=== PATIENT | male | born 1935 | race African-American/Black ===

== ENCOUNTER 2016-10-11 10:56 | Inpatient (IN) | payer OTHER ==
[~2016-10-11] VITALS: Ht 170.2 cm; Wt 74.8 kg
[~2016-10-11 10:56] MED LIST: ACAR50TA PO; AMLO10TA80 PO; ASPI-986 PO; ATOR-2 PO; GLIP10TA10 PO; HYDR-4134 PO; HYDR100T26 PO; HYDR25TA PO; LOSA50TA20 PO; METF10002 PO; OMEP20TA80 PO
[2016-10-11] MEDS ORDERED: NITROGLYCERIN OINT 1GM/INCH UDPKT TD STA (11:15)
[2016-10-11] MEDS ORDERED: ASPIRIN 81MG TABLET PO STA (11:15)
[2016-10-11] MEDS ORDERED: ONDANSETRON HCL 4MG/2ML VIAL IV STA (11:15)
[2016-10-11] MEDS ORDERED: MORPHINE SULFATE 4 MG/ML CPJ (NOT FOR IM USE) IV STA (11:15)
[2016-10-11] MEDS ORDERED: MORPHINE SULFATE 4 MG/ML CPJ (NOT FOR IM USE) IV ONE (11:30)
[2016-10-11 11:43] LABS: BASOPHILS % 1.1 % (0.0-2.0); HEMATOCRIT. 31.3 % (42.0-52.0); HEMOGLOBIN. 10.3 g/dL (14.0-18.0); LYMPHOCYTES % 17.9 % (20.0-50.0); MEAN CORPUSCULAR VOLUME 82.4 fL (80.0-94.0); MEAN PLATELET VOLUME 8.8 fl (7.4-10.4); MONOCYTES % 9.4 % (2.0-8.0); NEUTROPHILS % 70.6 % (40.0-76.0); PLATELET 340 x1000/uL (130-400); RED CELL DISTRIBUTION WIDTH 18.3 % (11.6-14.6)
[2016-10-11 11:51] LABS: CHLORIDE 103 mEq/L (98-107)
[2016-10-11 11:52] LABS: PARTIAL THROMBOPLASTIN TIME 23.6 sec (24.0-34.0); PROTHROMBIN TIME 10.3 sec
[2016-10-11 11:54] LABS: CARBON DIOXIDE 27 mEq/L (21-32)
[2016-10-11 12:00] LABS: TROPONIN I 0.05 ng/mL (0.00-0.04)
[2016-10-11] MEDS ORDERED: MAGNESIUM/ALUMINUM HYDROXIDE/SIMETHICONE 30ML UDC PO PRN (13:00)
[2016-10-11] MEDS ORDERED: HYDROMORPHONE HCL/PF 2MG/ML CPJ IV PRN (13:00)
[2016-10-11] MEDS ORDERED: IPRATROPIUM/ALBUTEROL 0.5-3(2.5)MG/3ML NEB INH PRN (13:00)
[2016-10-11] MEDS ORDERED: DIPHENHYDRAMINE 50MG/ML VIAL IV PRN (13:00)
[2016-10-11] MEDS ORDERED: CLONIDINE 0.1MG TABLET PO PRN (13:00)
[2016-10-11] MEDS ORDERED: ACETAMINOPHEN 325MG TABLET PO PRN (13:00)
[2016-10-11] MEDS ORDERED: ONDANSETRON HCL 4MG/2ML VIAL IV PRN (13:00)
[2016-10-11] MEDS ORDERED: DOCUSATE SODIUM 100MG CAPSULE PO PRN (13:00)
[2016-10-11] MEDS ORDERED: LORAZEPAM 2MG/ML CPJ IV PRN (13:00)
[2016-10-11] MEDS ORDERED: HYDROCODONE/ACETAMINOPHEN 10/325MG TABLET PO PRN (13:00)
[2016-10-11] MEDS ORDERED: GUAIFENESIN 200MG/10ML SUGAR FREE UDC PO PRN (13:00)
[2016-10-11] MEDS ORDERED: NA PHOS,M-B/NA PHOS,DI-BA ENEMA 118ML PR PRN (13:00)
[2016-10-11 15:34] VITALS: BP 148/74
[2016-10-11 16:00] VITALS: BP 148/74
[2016-10-11 16:52] LABS: CARBON DIOXIDE 28 mEq/L (21-32); CHLORIDE 103 mEq/L (98-107)
[2016-10-11] MEDS: ENOXAPARIN 40MG/0.4ML SYR SUBCUT SCH (17:54)
[2016-10-11 20:00] VITALS: BP 125/67
[2016-10-11] MEDS ORDERED: AMLODIPINE 10MG TABLET PO SCH (21:00)
[2016-10-11] MEDS ORDERED: DEXTROSE 50% WATER 50ML SYRINGE IV PRN (21:00)
[2016-10-11] MEDS: OMEPRAZOLE 20MG CAPSULE EXTENDED RELEASE PO SCH (21:03)
[2016-10-11] MEDS: HYDRALAZINE HCL 100MG TABLET PO SCH (21:03)
[2016-10-11] MEDS: BLOOD SUGAR DIAGNOSTIC STRIP TEST SCH (21:04)
[2016-10-11] MEDS: INSULIN LISPRO 100 UNITS/ML SUBCUT SCH (21:05)
[2016-10-12] VITALS: BP 115/64
[2016-10-12 04:00] VITALS: BP 133/77
[2016-10-12 06:14] LABS: BASOPHILS % 0.3 % (0.0-2.0); EOSINOPHILS % 3.4 % (0.0-5.0); HEMATOCRIT. 28.1 % (42.0-52.0); HEMOGLOBIN. 9.3 g/dL (14.0-18.0); LYMPHOCYTES % 21.3 % (20.0-50.0); MEAN CORPUSCULAR HEMOGLOBIN 27.3 pg (28.0-32.0); MEAN CORPUSCULAR VOLUME 82.7 fL (80.0-94.0); MEAN PLATELET VOLUME 9.5 fl (7.4-10.4); MONOCYTES % 10.4 % (2.0-8.0); NEUTROPHILS % 64.6 % (40.0-76.0); PLATELET 313 x1000/uL (130-400); RED CELL DISTRIBUTION WIDTH 18.5 % (11.6-14.6)
[2016-10-12] MEDS: HYDRALAZINE HCL 100MG TABLET PO SCH (06:19)
[2016-10-12] MEDS: OMEPRAZOLE 20MG CAPSULE EXTENDED RELEASE PO SCH (06:22)
[2016-10-12] MEDS: BLOOD SUGAR DIAGNOSTIC STRIP TEST SCH ×3 (06:27→18:16)
[2016-10-12] MEDS ORDERED: ACARBOSE 50 MG TABLET PO SCH (07:20)
[2016-10-12] MEDS: GLIPIZIDE 10MG TABLET PO SCH ×2 (07:59→18:25)
[2016-10-12 08:00] VITALS: BP 115/67
[2016-10-12] MEDS: METFORMIN HCL 500MG TABLET PO SCH ×2 (08:00→18:26)
[2016-10-12] MEDS: INSULIN LISPRO 100 UNITS/ML SUBCUT SCH ×3 (08:05→17:50)
[2016-10-12 08:14] LABS: CARBON DIOXIDE 29 mEq/L (21-32); CHLORIDE 104 mEq/L (98-107); LDL CHOLESTEROL 51 mg/dL (5-100)
[2016-10-12 08:15] LABS: HDL CHOLESTEROL 35 mg/dL (40-59)
[2016-10-12] MEDS ORDERED: ASPIRIN 81MG EC TABLET PO SCH (09:00)
[2016-10-12] MEDS ORDERED: ASPIRIN 325MG TABLET PO SCH (09:00)
[2016-10-12] MEDS ORDERED: LOSARTAN POTASSIUM 50 MG TABLET PO SCH (09:00)
[2016-10-12] MEDS ORDERED: HYDROCHLOROTHIAZIDE 25MG TABLET PO SCH (09:00)
[2016-10-12 12:00] VITALS: BP 130/73
[2016-10-12] MEDS ORDERED: HYDRALAZINE HCL 50MG TABLET PO SCH (12:00)
[2016-10-12 15:41] LABS: TROPONIN I 0.05 ng/mL (0.00-0.04)
[2016-10-12 15:45] LABS: T4 FREE 0.97 ng/dL (0.76-1.46)
[2016-10-12 16:00] VITALS: BP 135/75
[2016-10-12] MEDS: ENOXAPARIN 40MG/0.4ML SYR SUBCUT SCH (16:15)
[2016-10-12 20:00] VITALS: BP 148/79
[2016-10-12] MEDS ORDERED: ATORVASTATIN CALCIUM 40MG TABLET PO SCH (21:00)
[2016-10-13] MEDS ORDERED: FAMOTIDINE 20MG TABLET PO SCH (09:00)
[2016-10-13] MEDS ORDERED: ASPIRIN 81MG TABLET PO SCH (09:00)
== END 2016-10-12 21:25 | disposition short-term general hospital (02) | DRG 179 ==
LOC: ER 11:03 → 6WST 12:46
PROVIDERS: ADMIT Internal Medicine; ATTEND Internal Medicine
DX: J98.51 Mediastinitis (principal); D64.9 Anemia, unspecified; E11.9 Type 2 diabetes mellitus without complications; E78.5 Hyperlipidemia, unspecified; G89.4 Chronic pain syndrome; I25.10 Atherosclerotic heart disease of native coronary artery without angina pectoris; K21.9 Gastro-esophageal reflux disease without esophagitis; I11.9 Hypertensive heart disease without heart failure; Z88.8 Allergy status to other drugs, medicaments and biological substances; Z79.899 Other long term (current) drug therapy
CPT/HCPCS: 36415; 71010; 80048; 80053; 80061; 82550; 82553; 82962; 83036; 83690; 83880; 84439; 84443; 84484; 85025; 85379; 85610; 85730; 93005; 96374; 96375; 99291; C1893; J1650; J1815; J2270; J2405

== ENCOUNTER 2020-11-01 10:35 | Emergency (ER) | payer OTHER ==
[~2020-11-01] VITALS: Ht 172.7 cm; Wt 77.0 kg
[~2020-11-01 10:35] MED LIST changes: -ACAR50TA PO; +ACAR50TA5 PO; -LOSA50TA20 PO; +LOSA50TA41 PO; +METF-416 PO; -METF10002 PO; +OMEP20TA2 PO; -OMEP20TA80 PO
[2020-11-01] MEDS ORDERED: SODIUM CHLORIDE 0.9% 500 ML IV ONE (11:00)
[2020-11-01 11:20] LABS: BASOPHILS % 1.2 % (0.0-2.0); EOSINOPHILS % 2.6 % (0.0-5.0); HEMOGLOBIN. 10.4 g/dL (14.0-18.0); MEAN CORPUSCULAR HEMOGLOBIN 29.2 pg (28.0-32.0); MEAN CORPUSCULAR VOLUME 87.4 fL (80.0-94.0); MEAN PLATELET VOLUME 9.9 fl (7.4-10.4); MONOCYTES % 8.8 % (2.0-8.0); NEUTROPHILS % 68.4 % (40.0-76.0); PLATELET 227 x1000/uL (130-400); RED BLOOD CELL COUNT 3.55 mill/uL (4.7-6.1); RED CELL DISTRIBUTION WIDTH 16.7 % (11.6-14.6)
[2020-11-01 11:27] LABS: CHLORIDE 107 mEq/L (98-107)
[2020-11-01 13:15] LABS: CLARITY URINE CLEAR (CLEAR); COLOR URINE YELLOW (YELLOW); KETONES URINE NEGATIVE (NEGATIVE); LEUKOCYTE ESTERASE URINE NEGATIVE (NEGATIVE); NITRITE URINE NEGATIVE (NEGATIVE); OCCULT BLOOD URINE NEGATIVE (NEGATIVE); PROTEIN URINE 1+ (NEGATIVE); SPECIFIC GRAVITY URINE 1.007 (1.005-1.030); UROBILINOGEN URINE 0.2 E.U./dL (0.2-1.0)
[2020-11-01 15:05] VITALS: BP 161/56
== END 2020-11-01 15:06 | disposition short-term general hospital (02) ==
LOC: ER 10:35
DX: R00.1 Bradycardia, unspecified (principal); I10 Essential (primary) hypertension; E11.9 Type 2 diabetes mellitus without complications; Z88.8 Allergy status to other drugs, medicaments and biological substances; Z79.899 Other long term (current) drug therapy
CPT/HCPCS: 36415; 71045; 80053; 81003; 84484; 85025; 93005; 96360; 96361; 99285; J7040

== ENCOUNTER 2020-11-03 15:30 | Emergency (ER) | payer OTHER ==
[~2020-11-03] VITALS: Ht 175.3 cm; Wt 79.0 kg
[2020-11-03 16:13] LABS: BASOPHILS % 1.3 % (0.0-2.0); EOSINOPHILS % 2.9 % (0.0-5.0); HEMATOCRIT. 31.1 % (42.0-52.0); HEMOGLOBIN. 10.7 g/dL (14.0-18.0); MEAN CORPUSCULAR HEMOGLOBIN 29.9 pg (28.0-32.0); MEAN PLATELET VOLUME 9.9 fl (7.4-10.4); NEUTROPHILS % 66.8 % (40.0-76.0); PLATELET 216 x1000/uL (130-400); RED BLOOD CELL COUNT 3.58 mill/uL (4.7-6.1); RED CELL DISTRIBUTION WIDTH 16.9 % (11.6-14.6)
[2020-11-03 16:19] LABS: CHLORIDE 108 mEq/L (98-107)
[2020-11-03] MEDS ORDERED: ASPIRIN 81MG TABLET PO ONE (16:45)
[2020-11-03] MEDS ORDERED: NITROGLYCERIN 0.4MG TABLET SL SL PRN (16:45)
[2020-11-03 18:43] VITALS: BP 172/62
== END 2020-11-03 19:15 | disposition short-term general hospital (02) ==
LOC: ER 15:41 → CANBEDREQ 19:30
DX: R07.89 Other chest pain (principal); I20.0 Unstable angina; I11.9 Hypertensive heart disease without heart failure; E11.9 Type 2 diabetes mellitus without complications; Z88.8 Allergy status to other drugs, medicaments and biological substances; Z88.6 Allergy status to analgesic agent; Z79.899 Other long term (current) drug therapy
CPT/HCPCS: 36415; 71045; 80053; 83880; 84484; 85025; 93005; 99285

== ENCOUNTER 2021-08-26 10:52 | Emergency (ER) | payer OTHER ==
[~2021-08-26] VITALS: Ht 175.3 cm; Wt 97.0 kg
[2021-08-26] MEDS ORDERED: ONDANSETRON HCL 4MG/2ML INJ IV STA (11:09)
[2021-08-26] MEDS ORDERED: MORPHINE SULFATE 4 MG/ML CPJ (NOT FOR IM USE) IV STA (11:09)
[2021-08-26 11:40] LABS: BASOPHILS % 1.1 % (0.0-2.0); EOSINOPHILS % 0.9 % (0.0-5.0); HEMOGLOBIN. 11.2 g/dL (14.0-18.0); LYMPHOCYTES % 16.9 % (20.0-50.0); MEAN CORPUSCULAR HEMOGLOBIN 27.5 pg (28.0-32.0); MEAN CORPUSCULAR VOLUME 83.7 fL (80.0-94.0); MEAN PLATELET VOLUME 9.4 fl (7.4-10.4); MONOCYTES % 7.4 % (2.0-8.0); NEUTROPHILS % 73.7 % (40.0-76.0); PLATELET 241 x1000/uL (130-400); RED BLOOD CELL COUNT 4.07 mill/uL (4.7-6.1); RED CELL DISTRIBUTION WIDTH 18.4 % (11.6-14.6)
[2021-08-26 11:47] LABS: CHLORIDE 104 mEq/L (98-107)
[2021-08-26] MEDS ORDERED: MORPHINE SULFATE 4 MG/ML CPJ (NOT FOR IM USE) IV ONE (17:15)
[2021-08-26 17:47] VITALS: BP 153/60
== END 2021-08-26 17:58 | disposition short-term general hospital (02) ==
LOC: ER 10:52
DX: I20.0 Unstable angina (principal); I10 Essential (primary) hypertension; E78.00 Pure hypercholesterolemia, unspecified; Z88.8 Allergy status to other drugs, medicaments and biological substances; Z79.899 Other long term (current) drug therapy
CPT/HCPCS: 36415; 71045; 80053; 82962; 83880; 84484; 85025; 87426; 93005; 96374; 96375; 96376; 99285; J2270; J2405

== ENCOUNTER 2021-08-28 08:16 | Emergency (ER) | payer OTHER ==
[~2021-08-28] VITALS: Ht 175.3 cm; Wt 63.5 kg
[2021-08-28 08:18] VITALS: BP 183/65
[2021-08-28] MEDS ORDERED: CLONIDINE 0.1MG TABLET PO ONE (08:30)
[2021-08-28 08:53] LABS: BASOPHILS % 0.8 % (0.0-2.0); EOSINOPHILS % 3.1 % (0.0-5.0); HEMATOCRIT. 32.4 % (42.0-52.0); HEMOGLOBIN. 10.6 g/dL (14.0-18.0); LYMPHOCYTES % 22.2 % (20.0-50.0); MEAN CORPUSCULAR HEMOGLOBIN 28.2 pg (28.0-32.0); MEAN CORPUSCULAR VOLUME 86.2 fL (80.0-94.0); MEAN PLATELET VOLUME 8.9 fl (7.4-10.4); MONOCYTES % 7.5 % (2.0-8.0); NEUTROPHILS % 66.4 % (40.0-76.0); PLATELET 239 x1000/uL (130-400); RED BLOOD CELL COUNT 3.76 mill/uL (4.7-6.1); RED CELL DISTRIBUTION WIDTH 18.2 % (11.6-14.6)
[2021-08-28 09:02] LABS: CHLORIDE 109 mEq/L (98-107)
== END 2021-08-28 10:58 | disposition home or self-care (01) ==
LOC: ER 08:16
DX: I10 Essential (primary) hypertension (principal); E78.00 Pure hypercholesterolemia, unspecified; N41.9 Inflammatory disease of prostate, unspecified; Z88.8 Allergy status to other drugs, medicaments and biological substances; Z79.82 Long term (current) use of aspirin; Z86.718 Personal history of other venous thrombosis and embolism
CPT/HCPCS: 36415; 80053; 85025; 93005; 99284

== ENCOUNTER 2022-07-21 15:27 | Emergency (ER) | payer OTHER ==
[~2022-07-21] VITALS: Ht 162.6 cm; Wt 107.0 kg
[~2022-07-21 15:27] MED LIST changes: -OMEP20TA2 PO; +OMEP20TA23 PO
[2022-07-21 16:41] LABS: BASOPHILS % 1.2 % (0.0-2.0); EOSINOPHILS % 2.6 % (0.0-5.0); HEMOGLOBIN. 10.6 g/dL (14.0-18.0); LYMPHOCYTES % 25.8 % (20.0-50.0); MEAN CORPUSCULAR HEMOGLOBIN 28.7 pg (28.0-32.0); MONOCYTES % 10.4 % (2.0-8.0); PLATELET 252 x1000/uL (130-400); RED BLOOD CELL COUNT 3.68 mill/uL (4.7-6.1); RED CELL DISTRIBUTION WIDTH 16.8 % (11.6-14.6)
[2022-07-21 16:47] LABS: CHLORIDE 99 mEq/L (98-107)
[2022-07-21] MEDS ORDERED: KETOROLAC 15MG/ML VIAL IV ONE (18:00)
[2022-07-21] MEDS ORDERED: METHYLPREDNISOLONE SOD SUCC 40 MG/ML VIAL IV ONE (18:00)
[2022-07-21] MEDS ORDERED: SODIUM CHLORIDE 0.9% 500 ML IV ONE (18:00)
[2022-07-21] MEDS ORDERED: P20 MT (18:06)
[2022-07-21] MEDS ORDERED: TOPUD PO (18:07)
[2022-07-21 19:45] VITALS: BP 122/83
== END 2022-07-21 20:51 | disposition home or self-care (01) ==
LOC: ER 15:27
DX: E78.00 Pure hypercholesterolemia, unspecified (principal); E11.9 Type 2 diabetes mellitus without complications; I10 Essential (primary) hypertension; R42 Dizziness and giddiness; Z79.899 Other long term (current) drug therapy
CPT/HCPCS: 36415; 71045; 80053; 83605; 83880; 84484; 85025; 93005; 96365; 96375; 99285; J1885; J2920; J7040

== ENCOUNTER 2022-08-05 03:16 | Emergency (ER) | payer OTHER ==
[~2022-08-05] VITALS: Ht 172.7 cm; Wt 83.0 kg
[~2022-08-05 03:16] MED LIST changes: +P20 MT; +TOPUD PO
[2022-08-05] MEDS: IBUPROFEN 400MG TABLET PO ONE ×2 (06:15→07:04)
[2022-08-05] MEDS ORDERED: METOCLOPRAMIDE HCL 10MG TABLET PO ONE (06:15)
[2022-08-05 08:05] LABS: CHLORIDE 99 mEq/L (98-107)
[2022-08-05 08:11] LABS: BASOPHILS % 1.1 % (0.0-2.0); EOSINOPHILS % 1.7 % (0.0-5.0); HEMATOCRIT. 34.3 % (42.0-52.0); HEMOGLOBIN. 11.4 g/dL (14.0-18.0); LYMPHOCYTES % 25.6 % (20.0-50.0); MEAN CORPUSCULAR HEMOGLOBIN 29.1 pg (28.0-32.0); MEAN CORPUSCULAR VOLUME 87.7 fL (80.0-94.0); MEAN PLATELET VOLUME 10.8 fl (7.4-10.4); MONOCYTES % 7.7 % (2.0-8.0); NEUTROPHILS % 63.9 % (40.0-76.0); PLATELET 231 x1000/uL (130-400); RED BLOOD CELL COUNT 3.91 mill/uL (4.7-6.1); RED CELL DISTRIBUTION WIDTH 17.3 % (11.6-14.6)
[2022-08-05] MEDS ORDERED: HYDRALAZINE 20MG/ML VIAL IV ONE (08:30)
[2022-08-05] MEDS ORDERED: IOHEXOL-350 100 ML BOTTLE ONE (09:34)
[2022-08-05] MEDS ORDERED: ASPIRIN 325MG EC TABLET PO ONE (10:30)
[2022-08-05] MEDS ORDERED: FUROSEMIDE 20MG/2ML VIAL IVP ONE (10:30)
[2022-08-05] MEDS ORDERED: AMLODIPINE 10MG TABLET PO ONE (11:30)
[2022-08-05 12:38] VITALS: BP 204/83
== END 2022-08-05 12:40 | disposition short-term general hospital (02) ==
LOC: ER 03:16
DX: R07.9 Chest pain, unspecified (principal); I11.0 Hypertensive heart disease with heart failure; I50.9 Heart failure, unspecified; E11.9 Type 2 diabetes mellitus without complications; D64.9 Anemia, unspecified; E78.00 Pure hypercholesterolemia, unspecified; N40.0 Benign prostatic hyperplasia without lower urinary tract symptoms; Z88.6 Allergy status to analgesic agent; Z88.8 Allergy status to other drugs, medicaments and biological substances; Z79.82 Long term (current) use of aspirin; Z86.718 Personal history of other venous thrombosis and embolism; Z20.822 Contact with and (suspected) exposure to COVID-19
CPT/HCPCS: 36415; 70496; 71045; 80053; 83880; 84484; 85025; 87426; 93005; 96374; 96375; 99291; C9803; J0360; J1940; J8597; Q9967

== ENCOUNTER 2022-08-31 05:12 | Emergency (ER) | payer OTHER ==
[~2022-08-31] VITALS: Ht 172.7 cm; Wt 82.0 kg
[2022-08-31 05:17] VITALS: BP 190/65
[2022-08-31 05:58] LABS: BASOPHILS % 1.1 % (0.0-2.0); EOSINOPHILS % 2.4 % (0.0-5.0); HEMATOCRIT. 32.2 % (42.0-52.0); HEMOGLOBIN. 10.5 g/dL (14.0-18.0); LYMPHOCYTES % 21.5 % (20.0-50.0); MEAN CORPUSCULAR HEMOGLOBIN 28.9 pg (28.0-32.0); MEAN CORPUSCULAR VOLUME 88.9 fL (80.0-94.0); MEAN PLATELET VOLUME 9.9 fl (7.4-10.4); MONOCYTES % 7.6 % (2.0-8.0); NEUTROPHILS % 67.4 % (40.0-76.0); PLATELET 252 x1000/uL (130-400); RED BLOOD CELL COUNT 3.62 mill/uL (4.7-6.1); RED CELL DISTRIBUTION WIDTH 17.5 % (11.6-14.6)
[2022-08-31 06:02] LABS: CHLORIDE 106 mEq/L (98-107)
[2022-08-31] MEDS ORDERED: HYDRALAZINE HCL 50MG TABLET PO ONE (07:00)
[2022-08-31] MEDS ORDERED: HYDRALAZINE HCL 25MG TABLET PO NR (07:30)
== END 2022-08-31 09:16 | disposition home or self-care (01) ==
LOC: ER 05:12
DX: I10 Essential (primary) hypertension (principal); E11.9 Type 2 diabetes mellitus without complications; E78.00 Pure hypercholesterolemia, unspecified; Z79.84 Long term (current) use of oral hypoglycemic drugs; Z88.6 Allergy status to analgesic agent; Z88.8 Allergy status to other drugs, medicaments and biological substances
CPT/HCPCS: 36415; 80053; 85025; 93005; 99284

== ENCOUNTER 2022-09-28 04:33 | Emergency (ER) | payer OTHER ==
[~2022-09-28] VITALS: Ht 182.9 cm; Wt 77.0 kg
[2022-09-28] MEDS ORDERED: HYDRALAZINE 20MG/ML VIAL IV ONE (05:15)
[2022-09-28] MEDS ORDERED: ACETAMINOPHEN 325MG TABLET PO ONE (06:00)
[2022-09-28 06:15] VITALS: BP 175/62
[2022-09-28 08:14] LABS: BASOPHILS % 0.9 % (0.0-2.0); EOSINOPHILS % 2.5 % (0.0-5.0); HEMATOCRIT. 32.1 % (42.0-52.0); HEMOGLOBIN. 10.4 g/dL (14.0-18.0); LYMPHOCYTES % 17.4 % (20.0-50.0); MEAN CORPUSCULAR HEMOGLOBIN 28.8 pg (28.0-32.0); MEAN CORPUSCULAR VOLUME 89.1 fL (80.0-94.0); MEAN PLATELET VOLUME 9.9 fl (7.4-10.4); MONOCYTES % 8.4 % (2.0-8.0); NEUTROPHILS % 70.8 % (40.0-76.0); PLATELET 252 x1000/uL (130-400); RED CELL DISTRIBUTION WIDTH 17.1 % (11.6-14.6)
[2022-09-28 08:25] LABS: CHLORIDE 107 mEq/L (98-107); PROTHROMBIN TIME 10.7 sec (9.6-11.0)
== END 2022-09-28 11:20 | disposition home or self-care (01) ==
LOC: ER 04:33
DX: R51.9 Headache, unspecified (principal); I10 Essential (primary) hypertension; D64.9 Anemia, unspecified; E11.9 Type 2 diabetes mellitus without complications; E78.00 Pure hypercholesterolemia, unspecified; Z79.899 Other long term (current) drug therapy
CPT/HCPCS: 36415; 80053; 84484; 85025; 85610; 93005; 96374; 99284; J0360

== ENCOUNTER 2022-10-18 01:33 | Emergency (ER) | payer OTHER ==
[~2022-10-18] VITALS: Ht 167.6 cm; Wt 73.0 kg
[2022-10-18 09:28] LABS: BASOPHILS % 1.1 % (0.0-2.0); EOSINOPHILS % 4.4 % (0.0-5.0); HEMATOCRIT. 34.9 % (42.0-52.0); HEMOGLOBIN. 11.4 g/dL (14.0-18.0); LYMPHOCYTES % 22.4 % (20.0-50.0); MEAN CORPUSCULAR HEMOGLOBIN 28.8 pg (28.0-32.0); MEAN PLATELET VOLUME 10.1 fl (7.4-10.4); MONOCYTES % 8.4 % (2.0-8.0); NEUTROPHILS % 63.7 % (40.0-76.0); PLATELET 296 x1000/uL (130-400); RED BLOOD CELL COUNT 3.97 mill/uL (4.7-6.1)
[2022-10-18 09:40] LABS: CHLORIDE 107 mEq/L (98-107)
[2022-10-18 10:38] VITALS: BP 156/90
== END 2022-10-18 10:39 | disposition home or self-care (01) ==
LOC: ER 01:33
DX: I10 Essential (primary) hypertension (principal); E78.00 Pure hypercholesterolemia, unspecified; E11.9 Type 2 diabetes mellitus without complications; Z88.6 Allergy status to analgesic agent; Z88.8 Allergy status to other drugs, medicaments and biological substances; Z79.899 Other long term (current) drug therapy
CPT/HCPCS: 36415; 71045; 80053; 84484; 85025; 93005; 99285; C1893

== ENCOUNTER 2022-12-24 03:14 | Emergency (ER) | payer OTHER ==
[~2022-12-24] VITALS: Ht 167.6 cm; Wt 60.0 kg
[2022-12-24 03:17] VITALS: O2SAT 99
[2022-12-24] MEDS ORDERED: AMLODIPINE 10MG TABLET PO ONE (03:45)
[2022-12-24] MEDS ORDERED: HYDRALAZINE HCL 100MG TABLET PO ONE (03:45)
[2022-12-24 04:21] LABS: EOSINOPHILS % 4.7 % (0.0-5.0); HEMATOCRIT. 35.7 % (42.0-52.0); HEMOGLOBIN. 11.6 g/dL (14.0-18.0); LYMPHOCYTES % 18.6 % (20.0-50.0); MEAN CORPUSCULAR HEMOGLOBIN 28.2 pg (28.0-32.0); MEAN CORPUSCULAR HGB CONC 32.4 g/dL (31.0-37.0); MEAN CORPUSCULAR VOLUME 86.8 fL (80.0-94.0); MEAN PLATELET VOLUME 9.5 fl (7.4-10.4); NEUTROPHILS % 67.7 % (40.0-76.0); PLATELET 204 x1000/uL (130-400); RED BLOOD CELL COUNT 4.12 mill/uL (4.7-6.1); RED CELL DISTRIBUTION WIDTH 17.4 % (11.6-14.6); WHITE BLOOD COUNT 6.6 x1000/uL (4.5-11.0)
[2022-12-24 04:36] LABS: CHLORIDE 106 mEq/L (98-107); INDEX HEMOLYSI 4 (1-3); INDEX ICTERIC 1 (1-4); INDEX LIPEMIC 1 (1-3); SODIUM 137 mEq/L (136-145)
[2022-12-24 04:45] LABS: ALANINE AMINOTRANSFERASE 28 IU/L (13-61); ALBUMIN 3.8 g/dL (3.4-5.0); ASPARTATE AMINOTRANSFERASE 27 IU/L (15-37); BILIRUBIN TOTAL 0.3 mg/dL (0.1-1.0); CALCIUM 8.3 mg/dL (8.5-10.1); CARBON DIOXIDE 24 mEq/L (21-32); CREATININE 1.7 mg/dL (0.6-1.3); GLUCOSE 208 mg/dL (70-105); NT PRO B-TYPE NATRIURETIC PEP 506 pg/mL (5-125); PROTEIN TOTAL 7.9 g/dL (6.0-8.3); TROPONIN I HIGH SENSITIVITY 32 ng/L (<78); UREA NITROGEN BLOOD 28 mg/dL (7-21)
[2022-12-24 04:51] LABS: POTASSIUM 4.2 mEq/L (3.5-5.1)
[2022-12-24] MEDS ORDERED: ASPIRIN 325MG TABLET PO ONE (05:00)
[2022-12-24 05:21] LABS: INR 0.9; PROTHROMBIN TIME 10.1 sec (9.6-11.0)
[2022-12-24 07:35] VITALS: TEMP 98.6
[2022-12-24 09:35] VITALS: BP 164/64; PULSE 48; RESP 20
[2022-12-24 09:54] LABS: TROPONIN I HIGH SENSITIVITY 41 ng/L (<78)
[2022-12-24] MEDS ORDERED: HYDRALAZINE HCL 50MG TABLET PO ONE (10:15)
== END 2022-12-24 10:40 | disposition home or self-care (01) ==
LOC: ER 03:14
DX: R07.89 Other chest pain (principal); I10 Essential (primary) hypertension; E11.9 Type 2 diabetes mellitus without complications; E78.00 Pure hypercholesterolemia, unspecified; Z88.6 Allergy status to analgesic agent; Z88.8 Allergy status to other drugs, medicaments and biological substances; Z79.899 Other long term (current) drug therapy
CPT/HCPCS: 36415; 71045; 80053; 83880; 84484; 85025; 93005; 99285

== ENCOUNTER 2023-01-18 23:54 | Emergency (ER) | payer OTHER ==
[~2023-01-18] VITALS: Ht 170.2 cm; Wt 77.0 kg
[2023-01-18 23:56] VITALS: BP 193/64; PULSE 64; RESP 15; TEMP 98.3; O2SAT 99
[2023-01-19 01:33] LABS: BASOPHILS % 0.6 % (0.0-2.0); DIFFERENTIAL COMMENT 0; EOSINOPHILS % 0.2 % (0.0-5.0); HEMATOCRIT. 29.7 % (42.0-52.0); HEMOGLOBIN. 9.7 g/dL (14.0-18.0); LYMPHOCYTES % 7.6 % (20.0-50.0); MEAN CORPUSCULAR HEMOGLOBIN 28.3 pg (28.0-32.0); MEAN CORPUSCULAR HGB CONC 32.6 g/dL (31.0-37.0); MEAN CORPUSCULAR VOLUME 86.8 fL (80.0-94.0); MEAN PLATELET VOLUME 10.2 fl (7.4-10.4); NEUTROPHILS % 85.6 % (40.0-76.0); PLATELET 237 x1000/uL (130-400); RED BLOOD CELL COUNT 3.42 mill/uL (4.7-6.1); RED CELL DISTRIBUTION WIDTH 17.6 % (11.6-14.6); WHITE BLOOD COUNT 9.4 x1000/uL (4.5-11.0)
[2023-01-19 01:41] LABS: POTASSIUM 3.9 mEq/L (3.5-5.1)
[2023-01-19 01:46] LABS: BETA HYDROXYBUTYRATE 0.3 mMol/L (0.0-0.3); CALCIUM 7.6 mg/dL (8.5-10.1); CREATININE 1.7 mg/dL (0.6-1.3)
[2023-01-19] MEDS ORDERED: SODIUM CHLORIDE 0.9% 500 ML IV ONE (02:00)
== END 2023-01-19 07:00 | disposition home or self-care (01) ==
LOC: ER 23:54
DX: E11.65 Type 2 diabetes mellitus with hyperglycemia (principal); E78.00 Pure hypercholesterolemia, unspecified; I10 Essential (primary) hypertension; Z79.899 Other long term (current) drug therapy
CPT/HCPCS: 99283; 96360; 80048; 82010; 82962; 85025; 36415; J7040

== ENCOUNTER 2023-02-04 03:44 | Emergency (ER) | payer OTHER ==
[~2023-02-04] VITALS: Ht 165.1 cm; Wt 75.0 kg
[2023-02-04 03:53] VITALS: O2SAT 96
[2023-02-04 04:47] LABS: BASOPHILS % 0.8 % (0.0-2.0); EOSINOPHILS % 4.8 % (0.0-5.0); HEMATOCRIT. 31.2 % (42.0-52.0); HEMOGLOBIN. 10.2 g/dL (14.0-18.0); LYMPHOCYTES % 27.7 % (20.0-50.0); MEAN CORPUSCULAR HEMOGLOBIN 28.4 pg (28.0-32.0); MEAN CORPUSCULAR HGB CONC 32.6 g/dL (31.0-37.0); MEAN CORPUSCULAR VOLUME 87.2 fL (80.0-94.0); MEAN PLATELET VOLUME 9.7 fl (7.4-10.4); MONOCYTES % 10.2 % (2.0-8.0); NEUTROPHILS % 56.5 % (40.0-76.0); PLATELET 252 x1000/uL (130-400); RED BLOOD CELL COUNT 3.57 mill/uL (4.7-6.1); RED CELL DISTRIBUTION WIDTH 17.5 % (11.6-14.6); WHITE BLOOD COUNT 6.4 x1000/uL (4.5-11.0)
[2023-02-04 04:57] LABS: CHLORIDE 104 mEq/L (98-107); INDEX HEMOLYSI 1 (1-3); INDEX ICTERIC 1 (1-4); INDEX LIPEMIC 1 (1-3); POTASSIUM 3.7 mEq/L (3.5-5.1); SODIUM 137 mEq/L (136-145)
[2023-02-04 05:03] LABS: ALBUMIN 3.7 g/dL (3.4-5.0); CALCIUM 8.4 mg/dL (8.5-10.1); CARBON DIOXIDE 25 mEq/L (21-32); GLUCOSE 351 mg/dL (70-105); UREA NITROGEN BLOOD 18 mg/dL (7-21)
[2023-02-04 05:08] LABS: ALANINE AMINOTRANSFERASE 16 IU/L (13-61); ASPARTATE AMINOTRANSFERASE 10 IU/L (15-37); BILIRUBIN TOTAL 0.2 mg/dL (0.1-1.0); CREATININE 1.7 mg/dL (0.6-1.3); PROTEIN TOTAL 7.3 g/dL (6.0-8.3); TROPONIN I HIGH SENSITIVITY 45 ng/L (<78)
[2023-02-04] MEDS ORDERED: HYDRALAZINE HCL 50MG TABLET PO ONE (06:30)
[2023-02-04 07:54] VITALS: BP 154/54; PULSE 76; RESP 16; TEMP 98.3
[2023-02-04 08:45] LABS: TROPONIN I HIGH SENSITIVITY 49 ng/L (<78)
== END 2023-02-04 09:23 | disposition home or self-care (01) ==
LOC: ER 03:44
DX: I10 Essential (primary) hypertension (principal); Z88.6 Allergy status to analgesic agent; Z79.899 Other long term (current) drug therapy
CPT/HCPCS: 36415; 71045; 80053; 84484; 85025; 93005; 99285

== ENCOUNTER 2023-02-04 19:09 | Emergency (ER) | payer OTHER ==
[~2023-02-04] VITALS: Ht 175.3 cm; Wt 84.0 kg
[2023-02-04 19:14] VITALS: O2SAT 96
[2023-02-04 20:29] LABS: EOSINOPHILS % 4.6 % (0.0-5.0); HEMATOCRIT. 30.7 % (42.0-52.0); HEMOGLOBIN. 9.9 g/dL (14.0-18.0); LYMPHOCYTES % 18.5 % (20.0-50.0); MEAN CORPUSCULAR HEMOGLOBIN 28.2 pg (28.0-32.0); MEAN CORPUSCULAR HGB CONC 32.3 g/dL (31.0-37.0); MEAN CORPUSCULAR VOLUME 87.3 fL (80.0-94.0); MEAN PLATELET VOLUME 9.4 fl (7.4-10.4); MONOCYTES % 10.4 % (2.0-8.0); NEUTROPHILS % 65.5 % (40.0-76.0); PLATELET 234 x1000/uL (130-400); RED BLOOD CELL COUNT 3.52 mill/uL (4.7-6.1); RED CELL DISTRIBUTION WIDTH 17.7 % (11.6-14.6); WHITE BLOOD COUNT 5.4 x1000/uL (4.5-11.0)
[2023-02-04 20:37] LABS: CHLORIDE 103 mEq/L (98-107); INDEX HEMOLYSI 1 (1-3); INDEX ICTERIC 1 (1-4); INDEX LIPEMIC 1 (1-3); POTASSIUM 3.6 mEq/L (3.5-5.1); SODIUM 134 mEq/L (136-145)
[2023-02-04 20:48] LABS: ALANINE AMINOTRANSFERASE 20 IU/L (13-61); ALBUMIN 3.7 g/dL (3.4-5.0); ASPARTATE AMINOTRANSFERASE 10 IU/L (15-37); BILIRUBIN TOTAL 0.3 mg/dL (0.1-1.0); CALCIUM 8.5 mg/dL (8.5-10.1); CARBON DIOXIDE 24 mEq/L (21-32); CREATININE 1.8 mg/dL (0.6-1.3); ETHANOL BLOOD < 10 mg/dL (-10); GLUCOSE 219 mg/dL (70-105); NT PRO B-TYPE NATRIURETIC PEP 256 pg/mL (5-125); PROTEIN TOTAL 7.2 g/dL (6.0-8.3); TROPONIN I HIGH SENSITIVITY 54 ng/L (<78); UREA NITROGEN BLOOD 17 mg/dL (7-21)
[2023-02-04] MEDS ORDERED: ASPIRIN 81MG TABLET PO ONE (22:15)
[2023-02-05 00:28] VITALS: BP 189/78; PULSE 72; RESP 17; TEMP 98.4
== END 2023-02-05 01:35 | disposition short-term general hospital (02) ==
LOC: ER 19:09
DX: R07.89 Other chest pain (principal); I20.0 Unstable angina; I10 Essential (primary) hypertension
CPT/HCPCS: 36415; 71045; 80053; 80320; 83880; 84484; 85025; 99284; G0480

== ENCOUNTER 2023-03-21 09:56 | Emergency (ER) | payer OTHER ==
[~2023-03-21] VITALS: Ht 175.3 cm; Wt 80.0 kg
[2023-03-21 10:08] VITALS: BP 157/61; PULSE 68; RESP 18; TEMP 98.2; O2SAT 98
== END 2023-03-21 10:58 | disposition home or self-care (01) ==
LOC: ER 10:39
DX: I10 Essential (primary) hypertension (principal); Z79.899 Other long term (current) drug therapy
CPT/HCPCS: 93005; 99283

== ENCOUNTER 2023-10-21 16:34 | Emergency (ER) | payer OTHER ==
[~2023-10-21] VITALS: Ht 175.3 cm; Wt 82.0 kg
[~2023-10-21 16:34] MED LIST changes: -HYDR-4134 PO; +HYDR25TA78 PO
[2023-10-21 16:38] VITALS: TEMP 97.1; O2SAT 96
[2023-10-21 17:56] LABS: HEMATOCRIT. 35.1 % (42.0-52.0); HEMOGLOBIN. 11.4 g/dL (14.0-18.0); MEAN CORPUSCULAR HEMOGLOBIN 28.2 pg (28.0-32.0); MEAN CORPUSCULAR HGB CONC 32.3 g/dL (31.0-37.0); MEAN CORPUSCULAR VOLUME 87.1 fL (80.0-94.0); MEAN PLATELET VOLUME 10.3 fl (7.4-10.4); PLATELET 224 x1000/uL (130-400); RED BLOOD CELL COUNT 4.03 mill/uL (4.7-6.1); RED CELL DISTRIBUTION WIDTH 17.1 % (11.6-14.6); WHITE BLOOD COUNT 8.5 x1000/uL (4.5-11.0)
[2023-10-21 17:59] LABS: CHLORIDE 105 mEq/L (98-107); DIFFERENTIAL COMMENT 1; POTASSIUM 4.2 mEq/L (3.5-5.1); SODIUM 140 mEq/L (136-145)
[2023-10-21 18:00] LABS: CARBON DIOXIDE 25 mEq/L (21-32)
[2023-10-21 18:01] LABS: CALCIUM 9.1 mg/dL (8.7-10.4)
[2023-10-21 18:04] LABS: PARTIAL THROMBOPLASTIN TIME 24.8 sec (23.4-31.0); PROTHROMBIN TIME 10.9 sec (9.6-11.0)
[2023-10-21 18:05] LABS: CREATININE 2.1 mg/dL (0.6-1.3); GLUCOSE 186 mg/dL (70-105)
[2023-10-21 18:06] LABS: TROPONIN I HIGH SENSITIVITY 19 ng/L (3.0-53); UREA NITROGEN BLOOD 29 mg/dL (9-23)
[2023-10-21 18:07] LABS: ALANINE AMINOTRANSFERASE 31 IU/L (10-49); ALBUMIN 4.2 g/dL (3.2-4.8); ASPARTATE AMINOTRANSFERASE 19 IU/L (<34)
[2023-10-21 18:08] LABS: BILIRUBIN TOTAL 0.5 mg/dL (0.1-1.0); CREATINE KINASE 144 IU/L (46-171); PROTEIN TOTAL 7.3 g/dL (6.0-8.3)
[2023-10-21 18:30] LABS: PLATELET ESTIMATE NORMAL
[2023-10-21 18:45] VITALS: RESP 16
[2023-10-21] MEDS: MORPHINE SULFATE 4 MG/ML INJ (FOR IV/IM USE) IV STA (19:51)
[2023-10-21] MEDS: SODIUM CHLORIDE 0.9% 1,000 ML IV ONE (19:51)
[2023-10-21] MEDS: ONDANSETRON HCL 4MG/2ML INJ IV STA (19:51)
[2023-10-22] MEDS: LABETALOL 5MG/ML 4ML INJ IV NR
[2023-10-22 00:10] VITALS: BP 187/73; PULSE 56
== END 2023-10-22 00:15 | disposition short-term general hospital (02) ==
LOC: ER 16:34 → 5WST 20:19 → UNDOADMIN 20:19 → EDBEDREQTM 23:10 → EDBEDREQ 23:10 → 5WST 10-22 00:15 → CANBEDREQ 10-22 01:03 → UNDODISIN 10-22 01:06
DX: R55 Syncope and collapse (principal); M25.511 Pain in right shoulder; M25.551 Pain in right hip; R51.9 Headache, unspecified; E11.9 Type 2 diabetes mellitus without complications; I10 Essential (primary) hypertension; Z20.822 Contact with and (suspected) exposure to COVID-19; W18.30XA Fall on same level, unspecified, initial encounter; Y93.89 Activity, other specified; Y92.89 Other specified places as the place of occurrence of the external cause; Y99.8 Other external cause status
CPT/HCPCS: 99285; 70450; 96374; 71045; 96361; 96375 ×2; 87426; 80053; 82550; 83880; 85025; 85610; 85730; 84484; 36415; 72170; 73030; 73562; 72192; 73700; 93005; J2405; J2270; J7030; J3490

== ENCOUNTER 2024-01-08 19:13 | Emergency (ER) | payer OTHER ==
[~2024-01-08] VITALS: Ht 172.7 cm; Wt 76.0 kg
[2024-01-08 19:20] VITALS: O2SAT 97
[2024-01-08] MEDS ORDERED: DIPH28.33 TP (20:06)
[2024-01-08 20:30] VITALS: BP 156/79; PULSE 87; RESP 19; TEMP 98
[2024-01-08] MEDS: HYDRALAZINE HCL 100MG TABLET PO STA (22:36)
== END 2024-01-08 21:37 | disposition home or self-care (01) ==
LOC: ER 19:31
DX: L50.9 Urticaria, unspecified (principal); E11.9 Type 2 diabetes mellitus without complications; I10 Essential (primary) hypertension; Z79.899 Other long term (current) drug therapy
CPT/HCPCS: 99283

== ENCOUNTER 2024-03-15 12:02 | Emergency (ER) | payer OTHER ==
[~2024-03-15] VITALS: Ht 172.7 cm; Wt 77.0 kg
[~2024-03-15 12:02] MED LIST changes: +AMLO5TAB88 PO; +ASPI-1497 PO; +ATOR40TA70 PO; +DIPH28.33 TP; +EMPA25TA PO; +FAMO20TA8 PO; +FERR-71 MT; +FINA1TAB14 PO; +HYDR100T11 PO; -HYDR100T26 PO; -HYDR25TA PO; -HYDR25TA78 PO; +SPIR50TA5 PO
[2024-03-15 12:06] VITALS: O2SAT 100
[2024-03-15] MEDS ORDERED: AMLODIPINE 10MG TABLET PO ONE (12:30)
[2024-03-15] MEDS ORDERED: HYDRALAZINE HCL 100MG TABLET PO ONE (12:30)
[2024-03-15 12:43] VITALS: TEMP 36.83628
[2024-03-15 13:05] LABS: POTASSIUM 4.9 mEq/L (3.5-5.1)
[2024-03-15 13:06] LABS: CALCIUM 8.8 mg/dL (8.7-10.4)
[2024-03-15 13:11] LABS: CREATININE 1.9 mg/dL (0.6-1.3)
[2024-03-15] MEDS: HYDRALAZINE HCL 25MG TABLET PO SCH (13:13)
[2024-03-15] MEDS: AMLODIPINE 5MG TABLET PO SCH (13:13)
[2024-03-15 14:22] LABS: BASOPHILS % 1.3 % (0.0-2.0); EOSINOPHILS % 3.1 % (0.0-5.0); HEMATOCRIT. 35.1 % (42.0-52.0); HEMOGLOBIN. 11.6 g/dL (14.0-18.0); LYMPHOCYTES % 23.8 % (20.0-50.0); MEAN CORPUSCULAR HEMOGLOBIN 28.8 pg (28.0-32.0); MEAN CORPUSCULAR HGB CONC 33.1 g/dL (31.0-37.0); MEAN CORPUSCULAR VOLUME 86.9 fL (80.0-94.0); MEAN PLATELET VOLUME 10.1 fl (7.4-10.4); NEUTROPHILS % 63.8 % (40.0-76.0); PLATELET 239 x1000/uL (130-400); RED BLOOD CELL COUNT 4.04 mill/uL (4.7-6.1); RED CELL DISTRIBUTION WIDTH 17.2 % (11.6-14.6); WHITE BLOOD COUNT 6.2 x1000/uL (4.5-11.0)
[2024-03-15] MEDS: CLONIDINE 0.1MG TABLET PO NR (16:45)
[2024-03-15] MEDS ORDERED: CLONIDINE 0.2MG TABLET PO ONE (16:45)
[2024-03-15 18:36] VITALS: BP 121/50; PULSE 96; RESP 16; O2SAT 87
== END 2024-03-15 19:14 | disposition home or self-care (01) ==
LOC: ER 12:02
DX: I10 Essential (primary) hypertension (principal); E11.9 Type 2 diabetes mellitus without complications; Z88.8 Allergy status to other drugs, medicaments and biological substances; Z88.6 Allergy status to analgesic agent; Z79.899 Other long term (current) drug therapy; Z79.84 Long term (current) use of oral hypoglycemic drugs; Z79.82 Long term (current) use of aspirin
CPT/HCPCS: 36415; 80048; 85025; 93005; 99285

== ENCOUNTER 2024-10-03 05:45 | Emergency (ER) | payer OTHER ==
[~2024-10-03] VITALS: Ht 172.7 cm; Wt 73.0 kg
[~2024-10-03 05:45] MED LIST changes: -GLIP10TA10 PO; +GLIP10TA17 PO
[2024-10-03 05:54] VITALS: O2SAT 97
[2024-10-03 07:52] LABS: BASOPHILS % 0.5 % (0.0-2.0); EOSINOPHILS % 1.8 % (0.0-5.0); HEMATOCRIT. 32.4 % (42.0-52.0); HEMOGLOBIN. 10.2 g/dL (14.0-18.0); LYMPHOCYTES % 14.8 % (20.0-50.0); MEAN CORPUSCULAR HGB CONC 31.4 g/dL (31.0-37.0); MEAN CORPUSCULAR VOLUME 92.2 fL (80.0-94.0); MONOCYTES % 6.7 % (2.0-8.0); NEUTROPHILS % 76.2 % (40.0-76.0); PLATELET 168 x1000/uL (130-400); RED BLOOD CELL COUNT 3.51 mill/uL (4.7-6.1); RED CELL DISTRIBUTION WIDTH 16.9 % (11.6-14.6); WHITE BLOOD COUNT 7.4 x1000/uL (4.5-11.0)
[2024-10-03 08:11] LABS: CALCIUM 8.9 mg/dL (8.7-10.4); CARBON DIOXIDE 23 mEq/L (21-32)
[2024-10-03 08:12] LABS: CHLORIDE 107 mEq/L (98-107); POTASSIUM 4.3 mEq/L (3.5-5.1); SODIUM 139 mEq/L (136-145)
[2024-10-03 08:16] LABS: CREATININE 1.7 mg/dL (0.6-1.3); GLUCOSE 240 mg/dL (70-105); UREA NITROGEN BLOOD 21 mg/dL (9-23)
[2024-10-03 08:17] LABS: TROPONIN I HIGH SENSITIVITY 31 ng/L (3.0-53)
[2024-10-03 10:56] LABS: TROPONIN I HIGH SENSITIVITY 23 ng/L (3.0-53)
[2024-10-03 13:20] VITALS: BP 137/47; PULSE 55; RESP 15; TEMP 36.6; O2SAT 99
== END 2024-10-03 13:49 | disposition short-term general hospital (02) ==
LOC: ER 06:15
DX: R07.89 Other chest pain (principal); I10 Essential (primary) hypertension; I16.0 Hypertensive urgency; E11.9 Type 2 diabetes mellitus without complications; E78.5 Hyperlipidemia, unspecified; R41.82 Altered mental status, unspecified; Z79.82 Long term (current) use of aspirin; Z79.84 Long term (current) use of oral hypoglycemic drugs; Z79.899 Other long term (current) drug therapy; Z88.6 Allergy status to analgesic agent; Z88.8 Allergy status to other drugs, medicaments and biological substances
CPT/HCPCS: 36415; 71045; 80048; 82962; 83880; 84484; 85025; 93005; 99285

== ENCOUNTER 2024-10-09 14:01 | Emergency (ER) | payer OTHER ==
[~2024-10-09] VITALS: Ht 175.3 cm; Wt 73.0 kg
[2024-10-09 14:07] VITALS: O2SAT 97
[2024-10-09 15:57] LABS: BASOPHILS % 0.9 % (0.0-2.0); EOSINOPHILS % 2.4 % (0.0-5.0); HEMATOCRIT. 29.1 % (42.0-52.0); HEMOGLOBIN. 9.5 g/dL (14.0-18.0); MEAN CORPUSCULAR HEMOGLOBIN 28.9 pg (28.0-32.0); MEAN CORPUSCULAR HGB CONC 32.6 g/dL (31.0-37.0); MEAN CORPUSCULAR VOLUME 88.8 fL (80.0-94.0); MONOCYTES % 11.5 % (2.0-8.0); NEUTROPHILS % 62.2 % (40.0-76.0); PLATELET 177 x1000/uL (130-400); RED BLOOD CELL COUNT 3.28 mill/uL (4.7-6.1); WHITE BLOOD COUNT 4.8 x1000/uL (4.5-11.0)
[2024-10-09 16:03] LABS: CHLORIDE 107 mEq/L (98-107); POTASSIUM 4.2 mEq/L (3.5-5.1); SODIUM 141 mEq/L (136-145)
[2024-10-09 16:04] LABS: CARBON DIOXIDE 25 mEq/L (21-32)
[2024-10-09 16:05] LABS: CALCIUM 8.6 mg/dL (8.7-10.4)
[2024-10-09 16:08] LABS: PARTIAL THROMBOPLASTIN TIME 26.7 sec (23.4-31.0)
[2024-10-09 16:09] LABS: GLUCOSE 212 mg/dL (70-105)
[2024-10-09 16:10] LABS: TROPONIN I HIGH SENSITIVITY 41 ng/L (3.0-53); UREA NITROGEN BLOOD 32 mg/dL (9-23)
[2024-10-09 16:11] LABS: ALANINE AMINOTRANSFERASE 15 IU/L (10-49); ALBUMIN 3.7 g/dL (3.2-4.8); ASPARTATE AMINOTRANSFERASE 10 IU/L (<34)
[2024-10-09 16:12] LABS: BILIRUBIN DIRECT 0.1 mg/dL (<=3.0); BILIRUBIN TOTAL 0.3 mg/dL (0.1-1.0); PROTEIN TOTAL 6.7 g/dL (6.0-8.3)
[2024-10-09] MEDS: ACETAMINOPHEN 325MG TABLET PO ONE (16:35)
[2024-10-09 17:59] LABS: TROPONIN I HIGH SENSITIVITY 42 ng/L (3.0-53)
[2024-10-09 18:00] VITALS: TEMP 36.3
[2024-10-09] MEDS: FUROSEMIDE 20MG/2ML VIAL IVP ONE (19:08)
[2024-10-09] MEDS: MORPHINE SULFATE 4 MG/ML INJ (FOR IV/IM USE) IV ONE (19:46)
[2024-10-09 21:04] VITALS: BP 174/68; PULSE 77; RESP 20; O2SAT 95
== END 2024-10-09 21:08 | disposition home or self-care (01) ==
LOC: ER 14:01 → CANBEDREQ 19:04 → ER 21:08
DX: I13.0 Hypertensive heart and chronic kidney disease with heart failure and stage 1 through stage 4 chronic kidney disease, or unspecified chronic kidney disease (principal); I50.9 Heart failure, unspecified; N17.9 Acute kidney failure, unspecified; N18.9 Chronic kidney disease, unspecified; J45.909 Unspecified asthma, uncomplicated; M19.90 Unspecified osteoarthritis, unspecified site; E11.22 Type 2 diabetes mellitus with diabetic chronic kidney disease; D64.9 Anemia, unspecified; Z79.82 Long term (current) use of aspirin; Z79.01 Long term (current) use of anticoagulants; Z79.84 Long term (current) use of oral hypoglycemic drugs; Z79.899 Other long term (current) drug therapy; Z88.8 Allergy status to other drugs, medicaments and biological substances; Z88.6 Allergy status to analgesic agent
CPT/HCPCS: 80076; 80048; 83880; 85025; 85610; 85730; 84484; 36415; 71045; 93970; 93005; 96374; 96375; 99285; J1940; J2270; A4606

== ENCOUNTER 2024-11-21 04:56 | Emergency (ER) | payer OTHER ==
[~2024-11-21] VITALS: Ht 177.8 cm; Wt 90.0 kg
[2024-11-21 05:00] VITALS: O2SAT 98
[2024-11-21 06:17] LABS: BASOPHILS % 0.7 % (0.0-2.0); EOSINOPHILS % 6.2 % (0.0-5.0); HEMATOCRIT. 31.9 % (42.0-52.0); HEMOGLOBIN. 10.2 g/dL (14.0-18.0); LYMPHOCYTES % 14.0 % (20.0-50.0); MEAN PLATELET VOLUME 10.4 fl (7.4-10.4); MONOCYTES % 9.3 % (2.0-8.0); NEUTROPHILS % 69.8 % (40.0-76.0); PLATELET 198 x1000/uL (130-400); RED BLOOD CELL COUNT 3.61 mill/uL (4.7-6.1); RED CELL DISTRIBUTION WIDTH 15.4 % (11.6-14.6)
[2024-11-21 06:24] LABS: INR 1.0
[2024-11-21 06:30] LABS: CREATININE 2.0 mg/dL (0.6-1.3)
[2024-11-21 06:31] LABS: UREA NITROGEN BLOOD 26.0 mg/dL (9-23)
[2024-11-21] MEDS: CLONIDINE 0.1MG TABLET PO ONE (06:45)
[2024-11-21] MEDS: HYDRALAZINE 20MG/ML VIAL IV STA (07:08)
[2024-11-21] MEDS: HYDRALAZINE 20MG/ML VIAL IV SCH (07:15)
[2024-11-21 09:57] VITALS: BP 160/58; PULSE 50; RESP 18; TEMP 36.6; O2SAT 98
== END 2024-11-21 10:22 | disposition home or self-care (01) ==
LOC: ER 04:56
DX: I11.0 Hypertensive heart disease with heart failure (principal); I50.9 Heart failure, unspecified; R53.1 Weakness; E11.65 Type 2 diabetes mellitus with hyperglycemia; J45.909 Unspecified asthma, uncomplicated; M19.90 Unspecified osteoarthritis, unspecified site; Z79.82 Long term (current) use of aspirin; Z79.84 Long term (current) use of oral hypoglycemic drugs; Z79.899 Other long term (current) drug therapy; Z88.6 Allergy status to analgesic agent; Z88.8 Allergy status to other drugs, medicaments and biological substances
CPT/HCPCS: 99285; 96374; 80048; 85025; 85610; 36415; J0360

== ENCOUNTER 2024-12-10 10:47 | Emergency (ER) | payer OTHER ==
[~2024-12-10] VITALS: Ht 172.7 cm; Wt 77.0 kg
[2024-12-10 10:48] VITALS: O2SAT 97
[2024-12-10] MEDS ORDERED: HYDRALAZINE HCL 50MG TABLET PO ONE (11:15)
[2024-12-10] MEDS: ASPIRIN 81MG TABLET PO ONE (11:52)
[2024-12-10] MEDS: HYDRALAZINE HCL 25MG TABLET PO NR (11:52)
[2024-12-10 12:23] LABS: BASOPHILS % 1.1 % (0.0-2.0); EOSINOPHILS % 3.0 % (0.0-5.0); HEMATOCRIT. 33.1 % (42.0-52.0); HEMOGLOBIN. 10.6 g/dL (14.0-18.0); LYMPHOCYTES % 17.1 % (20.0-50.0); MEAN PLATELET VOLUME 10.9 fl (7.4-10.4); MONOCYTES % 8.4 % (2.0-8.0); NEUTROPHILS % 70.4 % (40.0-76.0); PLATELET 207 x1000/uL (130-400); RED BLOOD CELL COUNT 3.70 mill/uL (4.7-6.1); RED CELL DISTRIBUTION WIDTH 15.9 % (11.6-14.6)
[2024-12-10 12:36] LABS: CREATININE 2.3 mg/dL (0.6-1.3); TROPONIN I HIGH SENSITIVITY 44 ng/L (3.0-53); UREA NITROGEN BLOOD 35 mg/dL (9-23)
[2024-12-10 12:38] LABS: ASPARTATE AMINOTRANSFERASE 10 IU/L (<34); BILIRUBIN DIRECT 0.2 mg/dL (<=3.0)
[2024-12-10 12:39] LABS: BILIRUBIN TOTAL 0.3 mg/dL (0.1-1.0); PROTEIN TOTAL 7.7 g/dL (6.0-8.3)
[2024-12-10 13:45] LABS: TROPONIN I HIGH SENSITIVITY 46 ng/L (3.0-53)
[2024-12-10] MEDS ORDERED: HYDR25TA78 MT (14:25)
[2024-12-10] MEDS ORDERED: HYDR100T11 PO (16:41)
[2024-12-10 18:10] VITALS: BP 175/66; PULSE 61; RESP 16; TEMP 36.4; O2SAT 99
== END 2024-12-10 18:37 | disposition home or self-care (01) ==
LOC: ER 11:04
DX: I11.0 Hypertensive heart disease with heart failure (principal); I50.9 Heart failure, unspecified; E11.9 Type 2 diabetes mellitus without complications; M19.90 Unspecified osteoarthritis, unspecified site; Z76.0 Encounter for issue of repeat prescription; Z79.82 Long term (current) use of aspirin; Z79.84 Long term (current) use of oral hypoglycemic drugs; Z79.899 Other long term (current) drug therapy; Z86.718 Personal history of other venous thrombosis and embolism; Z88.6 Allergy status to analgesic agent; Z88.8 Allergy status to other drugs, medicaments and biological substances
CPT/HCPCS: 36415; 71045; 80048; 80076; 84484; 85025; 93005; 99285

== ENCOUNTER 2024-12-11 01:35 | Emergency (ER) | payer OTHER ==
[~2024-12-11] VITALS: Ht 170.2 cm; Wt 82.0 kg
[2024-12-11 02:00] VITALS: O2SAT 97
[2024-12-11] MEDS: ACETAMINOPHEN 325MG TABLET PO ONE (02:00)
[2024-12-11 02:59] LABS: BASOPHILS % 1.0 % (0.0-2.0); EOSINOPHILS % 3.7 % (0.0-5.0); HEMATOCRIT. 30.7 % (42.0-52.0); HEMOGLOBIN. 10.0 g/dL (14.0-18.0); LYMPHOCYTES % 13.9 % (20.0-50.0); MEAN PLATELET VOLUME 10.6 fl (7.4-10.4); MONOCYTES % 9.9 % (2.0-8.0); NEUTROPHILS % 71.5 % (40.0-76.0); PLATELET 209 x1000/uL (130-400); RED BLOOD CELL COUNT 3.47 mill/uL (4.7-6.1); RED CELL DISTRIBUTION WIDTH 15.6 % (11.6-14.6)
[2024-12-11 03:12] LABS: CREATININE 2.5 mg/dL (0.6-1.3)
[2024-12-11 03:13] LABS: UREA NITROGEN BLOOD 41 mg/dL (9-23)
[2024-12-11 03:14] LABS: ASPARTATE AMINOTRANSFERASE 12 IU/L (<34)
[2024-12-11 03:15] LABS: BILIRUBIN DIRECT < 0.1 mg/dL (<=3.0); BILIRUBIN TOTAL < 0.2 mg/dL (0.1-1.0); PROTEIN TOTAL 6.5 g/dL (6.0-8.3)
[2024-12-11] MEDS: ACETAMINOPHEN 325MG TABLET PO NR (03:55)
[2024-12-11] MEDS: MORPHINE SULFATE 4 MG/ML INJ (FOR IV/IM USE) IV ONE (04:30)
[2024-12-11] MEDS: ONDANSETRON HCL 4MG TABLET PO ONE (05:31)
[2024-12-11 06:29] LABS: CLARITY URINE CLEAR (CLEAR); COLOR URINE YELLOW (YELLOW); GLUCOSE URINE NEGATIVE (NEGATIVE); KETONES URINE NEGATIVE (NEGATIVE); LEUKOCYTE ESTERASE URINE NEGATIVE (NEGATIVE); NITRITE URINE NEGATIVE (NEGATIVE); OCCULT BLOOD URINE NEGATIVE (NEGATIVE); PH URINE 5.0 (4.5-8.0); PROTEIN URINE 1+ (NEGATIVE); SPECIFIC GRAVITY URINE 1.017 (1.005-1.030); UROBILINOGEN URINE 1.0 E.U./dL (0.2-1.0)
[2024-12-11 06:59] LABS: RBC URINE 0-2 /hpf (0-2); SQUAMOUS EPITHELIAL CELL URINE NONE SEEN /lpf (RARE/1+); WBC URINE 0-2 /hpf (0-2)
[2024-12-11 07:00] LABS: BACTERIA URINE NONE SEEN
[2024-12-11 07:54] VITALS: BP 144/51; PULSE 51; RESP 12; TEMP 36.8; O2SAT 95
== END 2024-12-11 08:18 | disposition short-term general hospital (02) ==
LOC: ER 01:38 → EDBEDREQ 06:36 → EDBEDREQTM 06:36 → EDBEDREQSVC 06:36 → ER 08:18 → CMPBEDREQ 12-13 08:02
DX: N40.0 Benign prostatic hyperplasia without lower urinary tract symptoms (principal); R10.30 Lower abdominal pain, unspecified; I13.0 Hypertensive heart and chronic kidney disease with heart failure and stage 1 through stage 4 chronic kidney disease, or unspecified chronic kidney disease; I50.9 Heart failure, unspecified; E11.22 Type 2 diabetes mellitus with diabetic chronic kidney disease; N17.9 Acute kidney failure, unspecified; Z79.82 Long term (current) use of aspirin; Z79.84 Long term (current) use of oral hypoglycemic drugs; Z79.899 Other long term (current) drug therapy; Z88.6 Allergy status to analgesic agent; Z88.8 Allergy status to other drugs, medicaments and biological substances
CPT/HCPCS: 99285; 74176; 80076; 80048; 81003; 83690; 85025; 36415; 93005; Q0162; A4606

== ENCOUNTER 2024-12-25 11:18 | Emergency (ER) | payer OTHER ==
[~2024-12-25] VITALS: Ht 175.3 cm; Wt 97.0 kg
[2024-12-25 11:20] VITALS: O2SAT 98
[2024-12-25 12:08] LABS: BASOPHILS % 0.7 % (0.0-2.0); EOSINOPHILS % 3.7 % (0.0-5.0); HEMATOCRIT. 32.3 % (42.0-52.0); HEMOGLOBIN. 10.4 g/dL (14.0-18.0); LYMPHOCYTES % 26.4 % (20.0-50.0); MEAN PLATELET VOLUME 9.4 fl (7.4-10.4); MONOCYTES % 7.6 % (2.0-8.0); NEUTROPHILS % 61.6 % (40.0-76.0); PLATELET 186 x1000/uL (130-400); RED BLOOD CELL COUNT 3.65 mill/uL (4.7-6.1); RED CELL DISTRIBUTION WIDTH 15.9 % (11.6-14.6)
[2024-12-25 12:32] LABS: CREATININE 1.9 mg/dL (0.6-1.3)
[2024-12-25 12:33] LABS: UREA NITROGEN BLOOD 31.0 mg/dL (9-23)
[2024-12-25] MEDS: ACETAMINOPHEN 500MG TABLET PO ONE (12:35)
[2024-12-25] MEDS: SODIUM CHLORIDE 0.9% 1,000 ML IV ONE (12:35)
[2024-12-25] MEDS: ONDANSETRON HCL 4MG/2ML INJ IV ONE (12:35)
[2024-12-25 15:59] VITALS: BP 149/56; PULSE 45; RESP 11; TEMP 36.7; O2SAT 98
== END 2024-12-25 16:18 | disposition home or self-care (01) ==
LOC: ER 11:18 → EDBEDREQ 11:57 → CANBEDREQ 14:54 → ER 16:18
DX: I10 Essential (primary) hypertension (principal); R51.9 Headache, unspecified; E11.9 Type 2 diabetes mellitus without complications; E78.5 Hyperlipidemia, unspecified; I11.0 Hypertensive heart disease with heart failure; I50.9 Heart failure, unspecified; I67.82 Cerebral ischemia; M47.812 Spondylosis without myelopathy or radiculopathy, cervical region; Z79.82 Long term (current) use of aspirin; Z79.84 Long term (current) use of oral hypoglycemic drugs; Z79.899 Other long term (current) drug therapy; Z88.6 Allergy status to analgesic agent; Z88.8 Allergy status to other drugs, medicaments and biological substances
CPT/HCPCS: 99285; 96374; 70450; 96361; 80048; 85025; 36415; J2405; J7030

== ENCOUNTER 2024-12-29 03:05 | Emergency (ER) | payer OTHER ==
[~2024-12-29] VITALS: Ht 172.7 cm; Wt 82.0 kg
[2024-12-29 03:06] VITALS: O2SAT 97
[2024-12-29 04:20] LABS: BASOPHILS % 1.2 % (0.0-2.0); EOSINOPHILS % 4.4 % (0.0-5.0); HEMATOCRIT. 33.0 % (42.0-52.0); HEMOGLOBIN. 10.8 g/dL (14.0-18.0); LYMPHOCYTES % 27.3 % (20.0-50.0); MEAN PLATELET VOLUME 11.2 fl (7.4-10.4); MONOCYTES % 8.8 % (2.0-8.0); NEUTROPHILS % 58.3 % (40.0-76.0); PLATELET 178 x1000/uL (130-400); RED BLOOD CELL COUNT 3.75 mill/uL (4.7-6.1); RED CELL DISTRIBUTION WIDTH 16.0 % (11.6-14.6)
[2024-12-29 04:33] LABS: CREATININE 1.9 mg/dL (0.6-1.3)
[2024-12-29 04:34] LABS: TROPONIN I HIGH SENSITIVITY 45 ng/L (3.0-53); UREA NITROGEN BLOOD 25 mg/dL (9-23)
[2024-12-29] MEDS: HYDRALAZINE 20MG/ML VIAL IV SCH (05:39)
[2024-12-29 06:08] LABS: TROPONIN I HIGH SENSITIVITY 42 ng/L (3.0-53)
[2024-12-29 06:33] VITALS: BP 148/53; PULSE 58; RESP 13; TEMP 36.8; O2SAT 98
== END 2024-12-29 06:53 | disposition home or self-care (01) ==
LOC: ER 03:05 → CMPBEDREQ 12-30 07:23
DX: I11.0 Hypertensive heart disease with heart failure (principal); I50.9 Heart failure, unspecified; E11.9 Type 2 diabetes mellitus without complications; Z88.6 Allergy status to analgesic agent; Z88.8 Allergy status to other drugs, medicaments and biological substances; Z79.82 Long term (current) use of aspirin; Z79.899 Other long term (current) drug therapy; Z98.890 Other specified postprocedural states
CPT/HCPCS: 99285; 96374; 70450; 71045; 80048; 85025; 84484; 36415; 93005; J0360

== ENCOUNTER 2024-12-29 12:38 | Emergency (ER) | payer OTHER ==
[~2024-12-29] VITALS: Ht 170.2 cm; Wt 78.0 kg
[2024-12-29 12:40] VITALS: O2SAT 96
[2024-12-29 13:39] LABS: BASOPHILS % 1.0 % (0.0-2.0); EOSINOPHILS % 3.7 % (0.0-5.0); HEMATOCRIT. 30.2 % (42.0-52.0); HEMOGLOBIN. 9.9 g/dL (14.0-18.0); LYMPHOCYTES % 25.0 % (20.0-50.0); MEAN PLATELET VOLUME 10.3 fl (7.4-10.4); MONOCYTES % 9.8 % (2.0-8.0); NEUTROPHILS % 60.5 % (40.0-76.0); PLATELET 173 x1000/uL (130-400); RED BLOOD CELL COUNT 3.47 mill/uL (4.7-6.1); RED CELL DISTRIBUTION WIDTH 16.9 % (11.6-14.6)
[2024-12-29 13:53] LABS: CREATININE 1.9 mg/dL (0.6-1.3); TROPONIN I HIGH SENSITIVITY 41 ng/L (3.0-53); UREA NITROGEN BLOOD 24 mg/dL (9-23)
[2024-12-29] MEDS: HYDRALAZINE 20MG/ML VIAL IV STA (13:54)
[2024-12-29] MEDS: CLONIDINE 0.1MG TABLET PO ONE (13:54)
[2024-12-29 13:55] LABS: ASPARTATE AMINOTRANSFERASE 28 IU/L (<34); BILIRUBIN DIRECT 0.1 mg/dL (<=3.0); BILIRUBIN TOTAL 0.3 mg/dL (0.1-1.0); PROTEIN TOTAL 6.7 g/dL (6.0-8.3)
[2024-12-29 16:10] LABS: TROPONIN I HIGH SENSITIVITY 43 ng/L (3.0-53)
[2024-12-29 18:13] LABS: TRIGLYCERIDE 80 mg/dL (0-150)
[2024-12-29 18:14] LABS: LDL CHOLESTEROL 52 mg/dL (5-100)
[2024-12-29 19:24] VITALS: BP 166/67; PULSE 45; RESP 15; TEMP 36.7; O2SAT 96
== END 2024-12-29 19:31 | disposition short-term general hospital (02) ==
LOC: ER 12:45 → EDBEDREQ 13:20 → CANBEDREQ 17:15 → ER 19:31
DX: R00.1 Bradycardia, unspecified (principal); I11.0 Hypertensive heart disease with heart failure; I50.9 Heart failure, unspecified; E11.9 Type 2 diabetes mellitus without complications; Z88.8 Allergy status to other drugs, medicaments and biological substances; Z88.6 Allergy status to analgesic agent; Z79.899 Other long term (current) drug therapy; Z79.82 Long term (current) use of aspirin; Z98.890 Other specified postprocedural states
CPT/HCPCS: 99285; 96374; 71045; 80061; 80076; 80048; 83880; 84443; 85025; 84484; 36415; 93005; J0360; A4606

== ENCOUNTER 2025-01-03 03:32 | Emergency (ER) | payer OTHER ==
[~2025-01-03] VITALS: Ht 172.7 cm; Wt 77.0 kg
[2025-01-03 03:35] VITALS: O2SAT 97
[2025-01-03] MEDS: CLONIDINE 0.2MG TABLET PO ONE (04:54)
[2025-01-03] MEDS: TRAMADOL HCL/ACETAMINOPHEN 37.5/325MG TABLET PO ONE (04:54)
[2025-01-03 05:24] LABS: BASOPHILS % 0.8 % (0.0-2.0); EOSINOPHILS % 2.7 % (0.0-5.0); HEMATOCRIT. 31.9 % (42.0-52.0); HEMOGLOBIN. 10.4 g/dL (14.0-18.0); LYMPHOCYTES % 18.8 % (20.0-50.0); MEAN PLATELET VOLUME 10.9 fl (7.4-10.4); MONOCYTES % 8.2 % (2.0-8.0); NEUTROPHILS % 69.5 % (40.0-76.0); PLATELET 169 x1000/uL (130-400); RED BLOOD CELL COUNT 3.67 mill/uL (4.7-6.1); RED CELL DISTRIBUTION WIDTH 16.0 % (11.6-14.6)
[2025-01-03 05:37] LABS: CREATININE 2.2 mg/dL (0.6-1.3); UREA NITROGEN BLOOD 23 mg/dL (9-23)
[2025-01-03 05:38] LABS: TROPONIN I HIGH SENSITIVITY 48 ng/L (3.0-53)
[2025-01-03 07:35] LABS: TROPONIN I HIGH SENSITIVITY 54 ng/L (3.0-53)
[2025-01-03 08:21] VITALS: BP 160/64; PULSE 55; RESP 20; TEMP 36.9; O2SAT 96
== END 2025-01-03 08:35 | disposition short-term general hospital (02) ==
LOC: ER 03:32 → EDBEDREQ 06:51 → EDBEDREQTM 06:51 → ER 08:35 → CMPBEDREQ 17:14
DX: I16.0 Hypertensive urgency (principal); R07.89 Other chest pain; I11.0 Hypertensive heart disease with heart failure; I50.9 Heart failure, unspecified; E11.9 Type 2 diabetes mellitus without complications; Z88.8 Allergy status to other drugs, medicaments and biological substances; Z88.6 Allergy status to analgesic agent; Z79.82 Long term (current) use of aspirin; Z79.899 Other long term (current) drug therapy; Z98.890 Other specified postprocedural states
CPT/HCPCS: 36415; 71045; 80048; 84484; 85025; 93005; 99291

== ENCOUNTER 2025-02-06 04:03 | Emergency (ER) | payer OTHER ==
[~2025-02-06] VITALS: Ht 172.7 cm; Wt 73.0 kg
[~2025-02-06 04:03] MED LIST changes: -AMLO5TAB88 PO; -ASPI-986 PO; -ATOR-2 PO; -DIPH28.33 TP; -METF-416 PO; -P20 MT; -TOPUD PO
[2025-02-06 04:08] VITALS: O2SAT 97
[2025-02-06 04:44] LABS: BASOPHILS % 0.9 % (0.0-2.0); EOSINOPHILS % 3.9 % (0.0-5.0); HEMATOCRIT. 32.5 % (42.0-52.0); HEMOGLOBIN. 10.7 g/dL (14.0-18.0); LYMPHOCYTES % 21.2 % (20.0-50.0); MEAN PLATELET VOLUME 10.2 fl (7.4-10.4); MONOCYTES % 8.0 % (2.0-8.0); NEUTROPHILS % 66.0 % (40.0-76.0); PLATELET 181 x1000/uL (130-400); RED BLOOD CELL COUNT 3.72 mill/uL (4.7-6.1); RED CELL DISTRIBUTION WIDTH 16.8 % (11.6-14.6)
[2025-02-06 04:56] LABS: INR 1.0
[2025-02-06 04:58] LABS: CREATININE 2.0 mg/dL (0.6-1.3)
[2025-02-06 04:59] LABS: UREA NITROGEN BLOOD 24 mg/dL (9-23)
[2025-02-06 05:00] LABS: ASPARTATE AMINOTRANSFERASE 14 IU/L (<34); TROPONIN I HIGH SENSITIVITY 40 ng/L (3.0-53)
[2025-02-06 05:01] LABS: BILIRUBIN DIRECT < 0.1 mg/dL (<=3.0); BILIRUBIN TOTAL 0.2 mg/dL (0.1-1.0); PROTEIN TOTAL 7.4 g/dL (6.0-8.3)
[2025-02-06 05:05] LABS: ETHANOL BLOOD < 10 mg/dL (<10)
[2025-02-06 07:46] LABS: CLARITY URINE CLEAR (CLEAR); COLOR URINE YELLOW (YELLOW); GLUCOSE URINE NEGATIVE (NEGATIVE); KETONES URINE NEGATIVE (NEGATIVE); LEUKOCYTE ESTERASE URINE NEGATIVE (NEGATIVE); NITRITE URINE NEGATIVE (NEGATIVE); OCCULT BLOOD URINE NEGATIVE (NEGATIVE); PH URINE 6.5 (4.5-8.0); PROTEIN URINE 2+ (NEGATIVE); SPECIFIC GRAVITY URINE 1.011 (1.005-1.030); UROBILINOGEN URINE 0.2 E.U./dL (0.2-1.0)
[2025-02-06 08:07] LABS: *AMPHETAMINES SCREEN URINE NEGATIVE (NEGATIVE); *BENZODIAZEPINES SCREEN URINE NEGATIVE (NEGATIVE)
[2025-02-06 08:08] LABS: *BARBITURATES SCREEN URINE NEGATIVE (NEGATIVE); *COCAINE SCREEN URINE NEGATIVE (NEGATIVE); CANNABINOID URINE SCREEN NEGATIVE (NEGATIVE); ECSTASY MDMA SCREEN URINE NEGATIVE (NEGATIVE); METHADONE URINE SCREEN NEGATIVE (NEGATIVE); OPIATES URINE SCREEN NEGATIVE (NEGATIVE); PHENCYCLIDINE URINE SCREEN NEGATIVE (NEGATIVE)
[2025-02-06 08:14] LABS: BACTERIA URINE RARE; RBC URINE NONE SEEN /hpf (0-2); SQUAMOUS EPITHELIAL CELL URINE NONE SEEN /lpf (RARE/1+); WBC URINE 0-2 /hpf (0-2)
[2025-02-06] MEDS: ACETAMINOPHEN 325MG TABLET PO ONE (08:18)
[2025-02-06] MEDS: CLONIDINE 0.1MG TABLET PO ONE (08:18)
[2025-02-06 11:34] VITALS: BP 163/55; PULSE 58; RESP 17; TEMP 36.7; O2SAT 97
== END 2025-02-06 11:47 | disposition home or self-care (01) ==
LOC: ER 04:03 → CMPBEDREQ 19:14
DX: I10 Essential (primary) hypertension (principal); N40.0 Benign prostatic hyperplasia without lower urinary tract symptoms; E11.9 Type 2 diabetes mellitus without complications; D64.9 Anemia, unspecified; Z79.84 Long term (current) use of oral hypoglycemic drugs; Z79.899 Other long term (current) drug therapy; Z88.6 Allergy status to analgesic agent; Z88.8 Allergy status to other drugs, medicaments and biological substances
CPT/HCPCS: 36415; 71045; 80048; 80076; 80305; 80320; 81003; 83735; 83880; 84484; 85025; 93005; 99285; A4606; G0480

== ENCOUNTER 2025-03-05 02:55 | Emergency (ER) | payer OTHER ==
[~2025-03-05] VITALS: Ht 172.7 cm; Wt 90.0 kg
[2025-03-05 02:58] VITALS: O2SAT 99
[2025-03-05] MEDS: SODIUM CHLORIDE 0.9% 500 ML IV ONE (03:55)
[2025-03-05 04:18] LABS: BASOPHILS % 0.7 % (0.0-2.0); EOSINOPHILS % 3.4 % (0.0-5.0); HEMATOCRIT. 33.3 % (42.0-52.0); HEMOGLOBIN. 10.5 g/dL (14.0-18.0); LYMPHOCYTES % 25.1 % (20.0-50.0); MEAN PLATELET VOLUME 9.5 fl (7.4-10.4); MONOCYTES % 11.0 % (2.0-8.0); NEUTROPHILS % 59.8 % (40.0-76.0); PLATELET 195 x1000/uL (130-400); RED BLOOD CELL COUNT 3.75 mill/uL (4.7-6.1); RED CELL DISTRIBUTION WIDTH 16.4 % (11.6-14.6)
[2025-03-05 05:16] LABS: CLARITY URINE CLEAR (CLEAR); COLOR URINE YELLOW (YELLOW); GLUCOSE URINE 2+ (NEGATIVE); KETONES URINE NEGATIVE (NEGATIVE); LEUKOCYTE ESTERASE URINE NEGATIVE (NEGATIVE); NITRITE URINE NEGATIVE (NEGATIVE); OCCULT BLOOD URINE NEGATIVE (NEGATIVE); PH URINE 5.5 (4.5-8.0); PROTEIN URINE 2+ (NEGATIVE); SPECIFIC GRAVITY URINE 1.015 (1.005-1.030); UROBILINOGEN URINE 0.2 E.U./dL (0.2-1.0)
[2025-03-05 05:32] LABS: CREATININE 2.2 mg/dL (0.6-1.3); UREA NITROGEN BLOOD 39.0 mg/dL (9-23)
[2025-03-05] MEDS: ACETAMINOPHEN 325MG TABLET PO ONE (05:38)
[2025-03-05 07:34] VITALS: BP 121/52; PULSE 55; RESP 20; TEMP 36.9; O2SAT 98
[2025-03-05 07:53] LABS: BACTERIA URINE NONE SEEN; RBC URINE NONE SEEN /hpf (0-2); SQUAMOUS EPITHELIAL CELL URINE NONE SEEN /lpf (RARE/1+); WBC URINE 0-2 /hpf (0-2)
== END 2025-03-05 07:42 | disposition home or self-care (01) ==
LOC: ER 02:55 → CMPBEDREQ 03-06 07:42
DX: E11.65 Type 2 diabetes mellitus with hyperglycemia (principal); E11.22 Type 2 diabetes mellitus with diabetic chronic kidney disease; I12.9 Hypertensive chronic kidney disease with stage 1 through stage 4 chronic kidney disease, or unspecified chronic kidney disease; N18.4 Chronic kidney disease, stage 4 (severe); Z79.82 Long term (current) use of aspirin; Z79.84 Long term (current) use of oral hypoglycemic drugs; Z79.899 Other long term (current) drug therapy; Z88.6 Allergy status to analgesic agent; Z88.8 Allergy status to other drugs, medicaments and biological substances
CPT/HCPCS: 99285; 80048; 81003; 83880; 85025; 36415; 93005; J7040

== ENCOUNTER 2025-03-15 05:34 | Emergency (ER) | payer OTHER ==
[~2025-03-15] VITALS: Ht 172.7 cm; Wt 79.0 kg
[~2025-03-15 05:34] MED LIST changes: +DOXA-14 PO; +MINO2.5T19 PO
[2025-03-15 05:39] VITALS: O2SAT 98
[2025-03-15] MEDS: ACETAMINOPHEN 325MG TABLET PO ONE (07:34)
[2025-03-15 07:43] LABS: UREA NITROGEN BLOOD 41.0 mg/dL (9-23)
[2025-03-15 07:45] LABS: TROPONIN I HIGH SENSITIVITY 42 ng/L (3.0-53)
[2025-03-15 07:46] LABS: CREATININE 2.6 mg/dL (0.6-1.3)
[2025-03-15 08:17] LABS: BASOPHILS % 1.1 % (0.0-2.0); EOSINOPHILS % 2.4 % (0.0-5.0); HEMATOCRIT. 27.9 % (42.0-52.0); HEMOGLOBIN. 9.1 g/dL (14.0-18.0); LYMPHOCYTES % 22.1 % (20.0-50.0); MEAN PLATELET VOLUME 10.1 fl (7.4-10.4); MONOCYTES % 10.5 % (2.0-8.0); NEUTROPHILS % 63.9 % (40.0-76.0); PLATELET 181 x1000/uL (130-400); RED BLOOD CELL COUNT 3.18 mill/uL (4.7-6.1); RED CELL DISTRIBUTION WIDTH 16.1 % (11.6-14.6)
[2025-03-15 10:13] VITALS: BP 138/62; PULSE 65; RESP 14; TEMP 36.9; O2SAT 98
== END 2025-03-15 10:14 | disposition home or self-care (01) ==
LOC: ER 05:34 → CANBEDREQ 08:41 → ER 10:14
DX: I10 Essential (primary) hypertension (principal); E11.9 Type 2 diabetes mellitus without complications; Z79.899 Other long term (current) drug therapy; Z88.6 Allergy status to analgesic agent; Z88.8 Allergy status to other drugs, medicaments and biological substances
CPT/HCPCS: 36415; 71045; 80048; 84484; 85025; 93005; 99285

== ENCOUNTER 2025-03-21 20:48 | Emergency (ER) | payer OTHER ==
[~2025-03-21] VITALS: Ht 172.7 cm; Wt 88.0 kg
[2025-03-21 20:54] VITALS: TEMP 36.8; O2SAT 99
[2025-03-22] MEDS ORDERED: HYDRALAZINE HCL 100MG TABLET PO ONE (01:15)
[2025-03-22] MEDS: HYDRALAZINE HCL 25MG TABLET PO NR (02:06)
[2025-03-22 02:32] VITALS: BP 119/71; PULSE 55; RESP 14; O2SAT 97
== END 2025-03-22 02:36 | disposition home or self-care (01) ==
LOC: ER 20:48
DX: I10 Essential (primary) hypertension (principal); E11.9 Type 2 diabetes mellitus without complications; I49.8 Other specified cardiac arrhythmias; Z79.82 Long term (current) use of aspirin; Z79.899 Other long term (current) drug therapy; Z88.6 Allergy status to analgesic agent; Z88.8 Allergy status to other drugs, medicaments and biological substances; Y04.0XXA Assault by unarmed brawl or fight, initial encounter; Y93.89 Activity, other specified; Y92.89 Other specified places as the place of occurrence of the external cause; Y99.8 Other external cause status
CPT/HCPCS: 82962; 93005; 99283

== ENCOUNTER 2025-03-22 04:15 | Emergency (ER) | payer OTHER ==
[~2025-03-22] VITALS: Ht 172.7 cm; Wt 82.0 kg
[2025-03-22 04:17] VITALS: O2SAT 98
[2025-03-22 05:18] LABS: BASOPHILS % 1.0 % (0.0-2.0); EOSINOPHILS % 4.8 % (0.0-5.0); HEMATOCRIT. 31.0 % (42.0-52.0); HEMOGLOBIN. 9.9 g/dL (14.0-18.0); LYMPHOCYTES % 18.1 % (20.0-50.0); MEAN PLATELET VOLUME 10.5 fl (7.4-10.4); MONOCYTES % 8.5 % (2.0-8.0); NEUTROPHILS % 67.6 % (40.0-76.0); PLATELET 218 x1000/uL (130-400); RED BLOOD CELL COUNT 3.48 mill/uL (4.7-6.1); RED CELL DISTRIBUTION WIDTH 16.6 % (11.6-14.6)
[2025-03-22 05:39] LABS: UREA NITROGEN BLOOD 21 mg/dL (9-23)
[2025-03-22 05:40] LABS: ASPARTATE AMINOTRANSFERASE 15 IU/L (<34); INR 1.0; TROPONIN I HIGH SENSITIVITY 36 ng/L (3.0-53)
[2025-03-22 05:41] LABS: BILIRUBIN DIRECT 0.1 mg/dL (<=3.0); BILIRUBIN TOTAL 0.3 mg/dL (0.1-1.0); PROTEIN TOTAL 7.0 g/dL (6.0-8.3)
[2025-03-22 06:24] LABS: CREATININE 1.8 mg/dL (0.6-1.3)
[2025-03-22] MEDS: AMLODIPINE 10MG TABLET PO ONE (09:50)
[2025-03-22 11:13] VITALS: BP 157/56; PULSE 61; RESP 21; TEMP 36.8; O2SAT 98
== END 2025-03-22 11:23 | disposition home or self-care (01) ==
LOC: ER 04:15 → CANBEDREQ 09:27 → ER 11:23
DX: I10 Essential (primary) hypertension (principal); E11.9 Type 2 diabetes mellitus without complications; R06.02 Shortness of breath; Z79.899 Other long term (current) drug therapy; Z88.6 Allergy status to analgesic agent; Z88.8 Allergy status to other drugs, medicaments and biological substances
CPT/HCPCS: 36415; 71045; 80048; 80076; 80320; 84484; 85025; 93005; 99285; G0480

== ENCOUNTER 2025-03-26 22:23 | Emergency (ER) | payer OTHER ==
[~2025-03-26] VITALS: Ht 172.7 cm; Wt 82.0 kg
[2025-03-26 22:32] VITALS: O2SAT 97
[2025-03-27] MEDS: HYDRALAZINE HCL 10MG TABLET PO ONE (01:17)
[2025-03-27 07:42] VITALS: BP 140/52; PULSE 63; RESP 16; TEMP 37.1; O2SAT 100
== END 2025-03-27 07:43 | disposition home or self-care (01) ==
LOC: ER 22:23
DX: I10 Essential (primary) hypertension (principal); E11.9 Type 2 diabetes mellitus without complications; Z91.148 Patient's other noncompliance with medication regimen for other reason; Z79.82 Long term (current) use of aspirin; Z79.899 Other long term (current) drug therapy; Z88.6 Allergy status to analgesic agent; Z88.8 Allergy status to other drugs, medicaments and biological substances
CPT/HCPCS: 82962; 99285

== ENCOUNTER 2025-05-09 01:38 | Emergency (ER) | payer OTHER ==
[~2025-05-09] VITALS: Ht 175.3 cm; Wt 91.0 kg
[2025-05-09 01:43] VITALS: O2SAT 97
[2025-05-09] MEDS: HYDRALAZINE 20MG/ML VIAL IV ONE (03:39)
[2025-05-09 07:29] VITALS: BP 178/64; PULSE 58; RESP 18; TEMP 36.8; O2SAT 98
== END 2025-05-09 07:35 | disposition home or self-care (01) ==
LOC: ER 01:38
DX: I10 Essential (primary) hypertension (principal); F41.9 Anxiety disorder, unspecified; E11.9 Type 2 diabetes mellitus without complications; Z79.82 Long term (current) use of aspirin; Z88.6 Allergy status to analgesic agent; Z88.8 Allergy status to other drugs, medicaments and biological substances; Z79.899 Other long term (current) drug therapy
CPT/HCPCS: 99285; 96374; 93005; J0360

== ENCOUNTER 2025-05-18 12:38 | Emergency (ER) | payer OTHER ==
[~2025-05-18] VITALS: Ht 170.2 cm; Wt 68.0 kg
[2025-05-18 12:41] VITALS: O2SAT 97
[2025-05-18 14:18] LABS: BASOPHILS % 1.0 % (0.0-2.0); EOSINOPHILS % 3.2 % (0.0-5.0); HEMATOCRIT. 32.6 % (42.0-52.0); HEMOGLOBIN. 10.2 g/dL (14.0-18.0); LYMPHOCYTES % 24.3 % (20.0-50.0); MEAN PLATELET VOLUME 10.2 fl (7.4-10.4); MONOCYTES % 10.3 % (2.0-8.0); NEUTROPHILS % 61.2 % (40.0-76.0); PLATELET 196 x1000/uL (130-400); RED BLOOD CELL COUNT 3.57 mill/uL (4.7-6.1); RED CELL DISTRIBUTION WIDTH 16.9 % (11.6-14.6)
[2025-05-18 14:31] LABS: CREATININE 1.9 mg/dL (0.6-1.3); UREA NITROGEN BLOOD 20.0 mg/dL (9-23)
[2025-05-18 14:33] LABS: TROPONIN I HIGH SENSITIVITY 26 ng/L (3.0-53)
[2025-05-18] MEDS: AMLODIPINE 10MG TABLET PO ONE (14:49)
[2025-05-18] MEDS: HYDRALAZINE HCL 100MG TABLET PO ONE (15:09)
[2025-05-18] MEDS: LOSARTAN 25 MG TABLET PO ONE (15:13)
[2025-05-18] MEDS: AMLODIPINE 10MG TABLET PO SCH (16:51)
[2025-05-18 18:10] VITALS: BP 147/56; PULSE 67; RESP 18; O2SAT 97
== END 2025-05-18 18:40 | disposition home or self-care (01) ==
LOC: ER 12:38
DX: I11.0 Hypertensive heart disease with heart failure (principal); E11.9 Type 2 diabetes mellitus without complications; D64.9 Anemia, unspecified; I50.9 Heart failure, unspecified; Z79.899 Other long term (current) drug therapy; Z88.6 Allergy status to analgesic agent; Z88.8 Allergy status to other drugs, medicaments and biological substances
CPT/HCPCS: 36415; 71045; 80048; 83880; 84484; 85025; 99285; A4606

== ENCOUNTER 2025-05-20 03:21 | Emergency (ER) | payer OTHER ==
[~2025-05-20] VITALS: Ht 172.7 cm; Wt 73.0 kg
[2025-05-20 03:26] VITALS: O2SAT 97
[2025-05-20 04:30] VITALS: TEMP 36.8
[2025-05-20] MEDS: ACETAMINOPHEN 325MG TABLET PO ONE (04:37)
[2025-05-20 05:41] VITALS: BP 133/50; PULSE 71; RESP 18; O2SAT 95
== END 2025-05-20 05:48 | disposition home or self-care (01) ==
LOC: ER 03:21
DX: I10 Essential (primary) hypertension (principal); Z79.899 Other long term (current) drug therapy; Z88.6 Allergy status to analgesic agent; Z88.8 Allergy status to other drugs, medicaments and biological substances
CPT/HCPCS: 99283; A4606

== ENCOUNTER 2025-05-22 02:15 | Emergency (ER) | payer OTHER ==
[~2025-05-22] VITALS: Ht 177.8 cm; Wt 91.0 kg
[2025-05-22 02:27] VITALS: O2SAT 99
[2025-05-22 03:30] LABS: CREATININE 2.0 mg/dL (0.6-1.3)
[2025-05-22 03:31] LABS: PROTEIN TOTAL 6.8 g/dL (6.0-8.3); TROPONIN I HIGH SENSITIVITY 29 ng/L (3.0-53); UREA NITROGEN BLOOD 16 mg/dL (9-23)
[2025-05-22 03:32] LABS: ASPARTATE AMINOTRANSFERASE 9 IU/L (<34)
[2025-05-22 03:33] LABS: BILIRUBIN DIRECT 0.1 mg/dL (<=3.0); BILIRUBIN TOTAL < 0.2 mg/dL (0.1-1.0)
[2025-05-22 03:55] LABS: BASOPHILS % 1.3 % (0.0-2.0); EOSINOPHILS % 4.3 % (0.0-5.0); HEMATOCRIT. 27.4 % (42.0-52.0); HEMOGLOBIN. 8.8 g/dL (14.0-18.0); LYMPHOCYTES % 19.0 % (20.0-50.0); MEAN PLATELET VOLUME 10.6 fl (7.4-10.4); MONOCYTES % 9.8 % (2.0-8.0); NEUTROPHILS % 65.6 % (40.0-76.0); PLATELET 189 x1000/uL (130-400); RED BLOOD CELL COUNT 3.08 mill/uL (4.7-6.1); RED CELL DISTRIBUTION WIDTH 16.5 % (11.6-14.6)
[2025-05-22 06:35] VITALS: BP 169/60; PULSE 67; RESP 16; TEMP 36.7; O2SAT 98
== END 2025-05-22 06:37 | disposition home or self-care (01) ==
LOC: ER 02:15 → CANBEDREQ 04:59 → ER 06:37
DX: I10 Essential (primary) hypertension (principal); E11.9 Type 2 diabetes mellitus without complications; F41.9 Anxiety disorder, unspecified; Z79.82 Long term (current) use of aspirin; Z79.899 Other long term (current) drug therapy; Z88.6 Allergy status to analgesic agent; Z88.8 Allergy status to other drugs, medicaments and biological substances
CPT/HCPCS: 36415; 71045; 80048; 80076; 83735; 84484; 85025; 93005; 99285